=== PATIENT | female | born 1975 | race Caucasian/White ===

== ENCOUNTER → 2021-03-09 01:04 | Outpatient (CLI) | payer OTHER, SELFPAY ==
[2021-03-09 15:14] LABS: Influenza Control Positive
[2021-03-09 21:03] LABS: SARS-CoV-2 RNA PCR Positive
== END ==
PROVIDERS: PCP Internal Medicine; Visit Provider Nurse Practitioner
DX: U07.1 COVID-19 (principal); R50.9 Fever, unspecified; R05.9 Cough, unspecified
CPT/HCPCS: 87804; C9803; U0003; U0005